=== PATIENT | female | born 1955 | race Two or more races ===

== ENCOUNTER 2018-05-01 18:09 | Inpatient (IN) | payer MEDICARE, OTHER ==
[2018-05-01] MEDS ORDERED: ACETAMINOPHEN IV (For NPO) 1,000 MG in EMPTY BAG 1 BAG IVPB PRN (23:51)
[2018-05-02] MEDS ORDERED: ALPRAZolam 0.25 MG TAB PO PRN (00:08)
--- NOTE | 2018-05-02 00:42 | HP ---
HISTORY AND PHYSICAL DATE OF SERVICE: 05/01/2018. CHIEF COMPLAINT: Abdominal pain. HISTORY OF PRESENT ILLNESS: This 62-year-old woman with a past medical history of multiple medical problems including hypertension, hyperlipidemia, history of anxiety, depression, being followed by primary physician elsewhere, presented to [facility] today with complaints of abdominal pain, nausea, vomiting. The patient was brought in by the daughter. The patient also was unable to retain any fluids. The patient has some cramping pain. There is no history of diarrhea, no history of headache or loss of consciousness. No hematochezia or melena at this time. The CT scan was done in [facility] which showed approximately 10 hyperdense fragmented densities within the stomach and approximately 5 radiation densities , foreign body suspected. The largest was in the stomach, measures 12 x 8 x 9 mm. The density was suspected greater than size, it could be ingested foreign bodies. There is no bowel perforation. There is segmental mucosal thickening of the ascending colon. Patient was transferred to [facility] as direct admission, admitted for evaluation and treatment. PAST MEDICAL HISTORY: Hypertension, hyperlipidemia, history of depression, anxiety. MEDICATIONS: Prior to admission include: 1. Lisinopril 40 mg p.o. daily. 2. Cymbalta 30 mg daily. 3. Lipitor 40 minute 10 mg at bedtime. ALLERGIES: None. FAMILY HISTORY: No history of heart disease or strokes in the family. SOCIAL HISTORY: History of smoking, history of THC. REVIEW OF SYSTEMS: ENT: No diminished vision. CARDIOVASCULAR: No angina. RESPIRATORY: No cough. GI: As mentioned. : No dysuria. NERVOUS SYSTEM: No numbness or weakness. ALLERGY: No asthma. MUSCULOSKELETAL: As mentioned. HEMATOLOGY: No anemia. ENDOCRINE: No history of diabetes or hypothyroidism. CONSTITUTIONAL: As mentioned earlier. PHYSICAL EXAMINATION: Alert, oriented x3, pulse 64, blood pressure 177/76, respirations 17, temperature 98.2, pulse ox 99% on room air. HEENT: Conjunctivae normal. Oral mucosa moist. NECK: No jugular venous distention. No lymph nodes. CARDIOVASCULAR: S1 and S2. LUNGS: Breath sounds diminished at the bases. Few rhonchi. No crackles. ABDOMEN: Soft. Mild diffuse tenderness in the epigastrium. No guarding noted. No rigidity. No mass palpable. LEGS: No edema, no swelling. NERVOUS SYSTEM: Higher functions as mentioned. Moves all limbs with no focal weakness. LYMPHATICS: No lymph nodes palpable. SKIN: No rashes or ulcers. LABS: Reviewed. ASSESSMENT: 1. Abdominal pain with possible foreign body. 2. Possible acute gastritis. 3. Depression, anxiety. 4. Hypertension. 5. Hyperlipidemia. 6. History of nicotine dependence. RECOMMENDATIONS AND DISCUSSION: This 62-year-old woman who presented with multiple complex medical issues. We will monitor the patient closely. Continue the current management. Continue with beta amalia. Proton pump inhibitors. Continue broad-spectrum antibiotics. IV fluids. Otherwise, we will will continue with current medications. Repeat labs. Gastroenterology consultation. Surgical consultation. Guarded prognosis because of multiple complex medical issues. Further recommendations to follow. MMODL / IJN: [id number] / RON
[2018-05-02] MEDS: SODIUM CHLORIDE 0.9% 1,000 ML IV SCH ×2 (01:03→08:27)
[2018-05-02] MEDS: ONDANSETRON 4 MG/2 ML VIAL IVP PRN ×5 (01:03→21:48)
[2018-05-02] MEDS: PIPERACILLIN-TAZOBACTAM 3.375 GM in DEXTROSE/WATER 1 50ML.BAG IVPB SCH ×3 (01:05→15:39)
[2018-05-02] MEDS: PANTOPRAZOLE 40 MG/10 ML VIAL IVP SCH ×3 (01:05→21:57)
[2018-05-02 07:16] LABS: Glucose,Whole Blood 99 mg/dL (75-99)
[2018-05-02] MEDS: NICOTINE 14MG/24HR PATCH TRANSDERM SCH (08:27)
[2018-05-02] MEDS: LISINOPRIL 20 MG TAB PO SCH (08:27)
[2018-05-02] MEDS: DULoxetine HCL 30 MG CAPSULE.DR PO SCH (08:28)
[2018-05-02] MEDS: HEPARIN SODIUM,PORCINE 5,000 UNIT/ML 1 ML VIAL SQ SCH ×2 (08:29→21:56)
--- NOTE | 2018-05-02 08:30 | XR ---
EXAMINATION TYPE: XR abdomen 1V DATE OF EXAM: 05/02/2018 COMPARISON: NONE HISTORY: Possible foreign body TECHNIQUE: One view abdominal series FINDINGS: The osseous structures are intact. The bowel gas pattern is nonspecific. There are radiopaque densit ies overlying the left abdomen and right pelvis. Foreign body not excluded. Degenerative change of the spine. Nonspecific radiopaque densities overlying the left abdomen and right pelvis. Foreign body not entire ly excluded. Correlate clinically.
--- NOTE | 2018-05-02 08:35 | P.CONS ---
History of Present Illness - Reason for Consult Consult date: 05/02/18 Foreign body Requesting physician: Jenifer Lechuga - History of Present Illness 62-year-old female transferred from [facility] with reports of epigastric pain nausea and vomiting that started yesterday. Denies hematemesis hematochezia melena. CT scan A/P in [place] showed several hyperdense fragmented densities within the stomach small intestine. Mucosal thickening of the ascendfing colon. No bowel obstruction or perforation. Patient denies ingesting a foreign body. She thought her symptoms related to food poisoning from eating a hotdog prior to admission. No fever or chills. Pain looking mostly in the midepigastric midabdomen. Abdominal x-ray this morning reported nonspecific radiopaque densities overlying the left abdomen and right pelvis foreign-body cannot be entirely excluded. White count 13.2. Hemoglobin 10.6. platelet 491. LFTs within normal limits. Past Medical History Past Medical History: Hyperlipidemia, Hypertension History of Any Multi-Drug Resistant Organisms: None Reported Past Surgical History: Section Past Anesthesia/Blood Transfusion Reactions: No Reported Reaction Past Psychological History: Anxiety, Depression Smoking Status: Current every day smoker Past Alcohol Use History: None Reported Past Drug Use History: Opiates Medications and Allergies Home Medications Medication Instructions Recorded Confirmed Type Atorvastatin [Lipitor] 10 mg PO HS 05/01/18 05/01/18 History DULoxetine HCL [Cymbalta] 30 mg PO DAILY 05/01/18 05/01/18 History Lisinopril 40 mg PO DAILY 05/01/18 05/01/18 History Allergies Allergy/AdvReac Type Severity Reaction Status Date / Time No Known Allergies Allergy Verified 05/01/18 22:32 Physical Exam Vitals: Vital Signs Temp Pulse Resp BP Pulse Ox 05/02/18 07:00 98.6 F 59 L 16 187/90 98 05/01/18 23:51 98.3 F 64 17 177/76 99 Intake and Output 05/01/18 05/02/18 05/02/18 22:59 06:59 14:59 Other: # Voids 2 Weight 38.4 kg General appearance: The patient is alert, oriented, in no acute distress. HET: Head is normocephalic and atraumatic. Pupils are equal and reactive. Oropharynx is clear without lesions. Neck: Supple without lymphadenopathy. Trachea midline. Heart: S1 S2. Regular rate and rhythm. Lungs: No crackles or wheezes are heard. Abdomen: Soft, mild tenderness to the midabdomen, nondistended with bowel sounds. No peritoneal signs. No palpable organomegaly or masses. Extremities: Normal skin color and turgor. No cyanosis, rash, ulceration, clubbing, or edema. Radial and pedal pulses are 2/4 bilaterally. Neurological: No focal deficits. Strength and sensation are grossly intact. Results CBC & Chem 7: 05/02/18 08:32 05/02/18 08:32 Abdominal x-ray: report reviewed (Dr. Smith) CT scan - abdomen: report reviewed ([place] Dr. Smith) Assessment and Plan (1) Epigastric pain Narrative/Plan: Acute onset of intractable nausea vomiting epigastric abdominal pain possible ingestion of foreign bodies per CT however patient denies ingestion of foreign body. Current Visit: Yes Status: Acute Code(s): R10.13 - EPIGASTRIC PAIN SNOMED Code(s): 46306225 (2) Nausea & vomiting Current Visit: Yes Status: Acute Code(s): R11.2 - NAUSEA WITH VOMITING, UNSPECIFIED SNOMED Code(s): 45493979 (3) Foreign body Current Visit: Yes Status: Acute Code(s): TTZ8718 - SNOMED Code(s): 133522383 Plan: 1. Clear liquids. EGD contingent on clinical course. CBC in a.m. 2. Recommend GS consult. 3. Protonix 40 mg IV BID. 4. Abdominal xrays in a.m. Thank you for this kind referral and the opportunity to participate in the care of your patient. This consultation was discussed with Dr. Smith. The impression and plan of care have been directed as dictated.
--- NOTE | 2018-05-02 08:46 | XR ---
EXAMINATION TYPE: XR chest 2V DATE OF EXAM: 05/02/2018 COMPARISON: NONE TECHNIQUE: PA and lateral views submitted. HISTORY: Possible foreign body FINDINGS: The lungs are clear and there is no pneumothorax, pleural effusion, or focal pneumonia. Postsurgica l change overlying soft tissues neck. Metallic density adjacent to the right neck should be correlate d clinically. Hyperinflation suggests COPD. Calcification overlying shoulder bilaterally. Metallic de nsities in the left upper quadrant. IMPRESSION: 1. Metallic densities in the left upper quadrant correspond to the abdominal KUB abnormality. This co uld be related to bowel content. Foreign body not excluded.
[2018-05-02 09:00] LABS: Basophils % (A) 0 %; Eosinophils % (A) 0 %; HCT 34.7 % (34.0-46.0); HGB 10.6 gm/dL (11.4-16.0); Lymphocytes # (A) 1.1 k/uL (1.0-4.8); Lymphocytes % (A) 8 %; MCH 29.2 pg (25.0-35.0); MCHC 30.5 g/dL (31.0-37.0); Mean Platelet Volume 6.7; Monocytes # (A) 0.4 k/uL (0-1.0); Monocytes % (A) 3 %; Neutrophils # (A) 11.6 k/uL (1.3-7.7); Neutrophils % (A) 88 %; Platelet Count 491 k/uL (150-450); RBC 3.62 m/uL (3.80-5.40); RDW 15.6 % (11.5-15.5); WBC 13.2 k/uL (3.8-10.6)
[2018-05-02 09:20] LABS: Glucose 107 mg/dL (74-99)
[2018-05-02 09:21] LABS: ALT 26 U/L (9-52); AST 15 U/L (14-36); Albumin 3.8 g/dL (3.5-5.0); Alkaline Phosphatase 93 U/L (38-126); Anion Gap 11 mmol/L; Blood Urea Nitrogen 11 mg/dL (7-17); Calcium 9.4 mg/dL (8.4-10.2); Carbon Dioxide 25 mmol/L (22-30); Chloride 102 mmol/L (98-107); Potassium 3.7 mmol/L (3.5-5.1); Sodium 138 mmol/L (137-145); Total Bilirubin 0.5 mg/dL (0.2-1.3); Total Protein 6.3 g/dL (6.3-8.2)
[2018-05-02 10:49] VITALS: BMI 18.9
--- NOTE | 2018-05-02 11:41 | P.GSCN ---
History of Present Illness Consult date: 05/02/18 Reason for Consult: Possible foreign body found on abdominal CAT scan History of present illness: A 62-year-old female presented from [facility] to be evaluated at this facility for a sudden onset nausea vomiting mid epigastric discomfort. Patient states she was seen in [facility] thought she had an x-ray was told they thought she swallowed something and she needed to come to [facility] patient is a poor historian. Patient is adamant that she did not swallow anything. "I think I have food poisoning ate a hot a dog and then the symptoms started. Patient points to the midepigastric abdominal area to the reference point of discomfort. Patient states that she did vomit there was no blood noted in the emesis no frequent stooling no difficulty in urinating abdomen is soft flat nontender no difficulty noted in swallowing CAT scan abdomen pelvis report reviewed from [place] showed no bowel obstruction or perforation several hyperdense fragmented densities within the stomach intestine also thickening of the ascending colon. Abdominal x-ray repeated this morning report indicate nonspecific radiopaque densities over lying the left abdomen and right pelvis foreign body cannot be entirely excluded. Liver enzymes are normal. Hemoglobin 10.6. White count 13.2. Patient denies any prior episode. Review of Systems Essentially unremarkable except as mentioned in the present illness Past Medical History Past Medical History: Hyperlipidemia, Hypertension History of Any Multi-Drug Resistant Organisms: None Reported Past Surgical History: Section Past Anesthesia/Blood Transfusion Reactions: No Reported Reaction Past Psychological History: Anxiety, Depression Smoking Status: Current every day smoker Past Alcohol Use History: None Reported Past Drug Use History: Opiates Medications and Allergies Home Medications Medication Instructions Recorded Confirmed Type Atorvastatin [Lipitor] 10 mg PO HS 05/01/18 05/01/18 History DULoxetine HCL [Cymbalta] 30 mg PO DAILY 05/01/18 05/01/18 History Lisinopril 40 mg PO DAILY 05/01/18 05/01/18 History Allergies Allergy/AdvReac Type Severity Reaction Status Date / Time No Known Allergies Allergy Verified 05/01/18 22:32 Surgical - Exam Vital Signs Temp Pulse Resp BP Pulse Ox 98.3 F 64 17 177/76 99 05/01/18 23:51 05/01/18 23:51 05/01/18 23:51 05/01/18 23:51 05/01/18 23:51 GENERAL APPEARANCE: 62-year-old thin underweight looking older than stated age female patient is alert, oriented, in no acute distress. VITAL SIGNS: Reviewed HEENT: Head is normocephalic and atraumatic. Pupils are equal and reactive. The nares are patent. Oropharynx is clear without lesions. NECK: Supple without lymphadenopathy. Traches midline. HEART: S1, S2. Regular rate and rhythm. Denies chest pain LUNGS: No crackles or wheezes are heard. On room air ABDOMEN: Soft, flat mild tenderness mid abdominal wall, nondistended with good bowel sounds. No peritoneal signs. No palpable organomegaly or masses. Reports a nausea sensation. Did vomit clear secretions no blood noted EXTREMITIES: Normal skin color and turgor. No cyanosis, rash, ulceration, clubbing or edema. Radial pedal pulses are 2/4 bilaterally. NEUROLOGICAL: No focal deficits. Strength and sensation are grossly intact. Results - Labs 05/02/18 08:32 05/02/18 08:32 Abnormal Lab Results - Last 24 Hours (Table) 05/02/18 05/02/18 Range/Units 08:32 08:32 WBC 13.2 H (3.8-10.6) k/uL RBC 3.62 L (3.80-5.40) m/uL Hgb 10.6 L (11.4-16.0) gm/dL MCHC 30.5 L (31.0-37.0) g/dL RDW 15.6 H (11.5-15.5) % Plt Count 491 H (150-450) k/uL Neutrophils # 11.6 H (1.3-7.7) k/uL Glucose 107 H (74-99) mg/dL Diabetes panel 05/02/18 Range/Units 08:32 Sodium 138 (137-145) mmol/L Potassium 3.7 (3.5-5.1) mmol/L Chloride 102 (98-107) mmol/L Carbon Dioxide 25 (22-30) mmol/L BUN 11 (7-17) mg/dL Creatinine 0.80 (0.52-1.04) mg/dL Glucose 107 H (74-99) mg/dL Calcium 9.4 (8.4-10.2) mg/dL AST 15 (14-36) U/L ALT 26 (9-52) U/L Alkaline Phosphatase 93 (38-126) U/L Total Protein 6.3 (6.3-8.2) g/dL Albumin 3.8 (3.5-5.0) g/dL Calcium panel 05/02/18 Range/Units 08:32 Calcium 9.4 (8.4-10.2) mg/dL Albumin 3.8 (3.5-5.0) g/dL Pituitary panel 05/02/18 Range/Units 08:32 Sodium 138 (137-145) mmol/L Potassium 3.7 (3.5-5.1) mmol/L Chloride 102 (98-107) mmol/L Carbon Dioxide 25 (22-30) mmol/L BUN 11 (7-17) mg/dL Creatinine 0.80 (0.52-1.04) mg/dL Glucose 107 H (74-99) mg/dL Calcium 9.4 (8.4-10.2) mg/dL Adrenal panel 05/02/18 Range/Units 08:32 Sodium 138 (137-145) mmol/L Potassium 3.7 (3.5-5.1) mmol/L Chloride 102 (98-107) mmol/L Carbon Dioxide 25 (22-30) mmol/L BUN 11 (7-17) mg/dL Creatinine 0.80 (0.52-1.04) mg/dL Glucose 107 H (74-99) mg/dL Calcium 9.4 (8.4-10.2) mg/dL Total Bilirubin 0.5 (0.2-1.3) mg/dL AST 15 (14-36) U/L ALT 26 (9-52) U/L Alkaline Phosphatase 93 (38-126) U/L Total Protein 6.3 (6.3-8.2) g/dL Albumin 3.8 (3.5-5.0) g/dL Assessment and Plan Assessment: Impression Present on admission mild midepigastric pain with nausea vomiting unclear etiology Present on admission acute onset intractable nausea vomiting epigastric pain possible ingestion of foreign body per CAT scan abdomen pelvis patient denies ingestion of foreign body Chronic nicotine dependency Underweight BMI 19 Present on admission leukocytosis likely reactive Present on admission elevated BNP Plan IV fluid for hydration GIs recommendations noted Continue protonix 40 mg IV twice a day Clear liquid diet as ordered Follow-up on abdominal x-rays in the morning Aspiration precaution Medical service to address medical issues defer to DVT and GI prophylaxis Further surgical recommendations pending clinical course no evidence of an acute surgical abdomen at this time Surgical consultation note dictated for The above impression and plan of care have been discussed and directed by signing physician. Sivan Malcolm nurse practitioner acting as scribe for signing physician.
--- NOTE | 2018-05-02 14:35 | PN ---
PROGRESS NOTE DATE OF SERVICE: 05/02/2018 This is a 62-year-old woman who was admitted with abdominal pain with possible foreign body, is being closely monitored. GI and Surgery are following the patient closely. No chest pain. No palpitations. No fever. The most recent abdominal x-ray done today is reviewed. No chest pain, no palpitation. Minimal abdominal pain is complained of. . PHYSICAL EXAM: Alert and oriented x3. Pulse 59, blood pressure 187/90, respirations 16, temperature 98.2, pulse ox 98% on room air. HEENT: Conjunctivae normal. NECK: No jugular venous distension. CARDIOVASCULAR SYSTEM: S1, S2, muffled. RESPIRATORY: Breath sounds diminished at the bases, a few scattered rhonchi. No crackles. ABDOMEN: Soft, nontender. LEGS: No edema, no swelling. LABS: WBC is 13, hemoglobin is 10.6. ASSESSMENT: 1. Abdominal pain with possible foreign body. 2. Possible acute gastritis. 3. Depression, anxiety. 4. Hypertension. 5. Hyperlipidemia. 6. History of nicotine dependence. RECOMMENDATIONS AND DISCUSSION: Recommend to continue current management and symptomatic treatment. Otherwise, at this time possible endoscopy. Closely follow with Surgery and as well as Gastroenterology. Guarded prognosis because of multiple complex medical issues and further recommendations to follow. MMODL / IJN: [id number] /
[2018-05-02] MEDS: hydrALAZINE HCL 20 MG/ML 1 ML VIAL IVP PRN (15:07)
[2018-05-02] MEDS ORDERED: LIDOCAINE 1% INJ 10MG/ML (20 ML MDV) ONE (18:17)
[2018-05-02] MEDS ORDERED: MIDAZOLAM 2 MG/2 ML VIAL ONE (18:17)
[2018-05-02] MEDS ORDERED: PROPOFOL 10 MG/ML 20 ML VIAL IV ONE (18:17)
[2018-05-02] MEDS ORDERED: IV FLUID CONTINUATION 150 ML IV ONE (18:18)
--- NOTE | 2018-05-02 18:30 | P.PCN ---
Date of Procedure: 05/02/18 Procedure(s) Performed: BRIEF HISTORY: Patient is a 62-year-old, pleasant, white female, admitted to the hospital with abdominal pain, nausea and vomiting. She had abdominal x- rays done which showed possible foreign body in the stomach and the small bowel. She is hence scheduled for an upper endoscopy to evaluate this further.. PROCEDURE PERFORMED: Esophagogastroduodenoscopy. PREOPERATIVE DIAGNOSIS: Epigastric pain/nausea/vomiting of 2 days duration. IV sedation per anesthesia. PROCEDURE: After informed consent was obtained, the patient was brought into the endoscopy unit. IV sedation was administered by Anesthesia under continuous monitoring. Initially the Olympus GIF-140 video endoscope was inserted into the mouth. Esophagus intubated without any difficulty. It was gradually advanced into the stomach and duodenum and carefully examined. The bulb and the second part of the duodenum appeared normal. The scope at this time was withdrawn to the stomach, adequately insufflated with air, and upon careful examination, mucosa of the antrum, had mild gastritis. The body, cardia and the fundus appeared normal. There was no evidence of foreign body in the stomach. The scope was then withdrawn into the esophagus. The GE junction was located at 39 cm from the incisors. There were linear erosions in the distal esophagus consistent with LA grade B reflux esophagitis. Rest of the esophagus appeared normal and the patient tolerated the procedure well. IMPRESSION: 1. Mild gastritis. 2. LA grade B reflux esophagitis. 3. No foreign body noted in the stomach RECOMMENDATIONS: The findings of this examination were discussed with the patient . Her diet will be advanced as tolerated...
[2018-05-02] MEDS: ATORVASTATIN 10 MG TAB PO SCH (21:56)
[2018-05-02] MEDS: MELATONIN 3 MG TABLET PO SCH (21:56)
[2018-05-03] MEDS: SODIUM CHLORIDE 0.9% 1,000 ML IV SCH ×3 (00:24→23:19)
[2018-05-03] MEDS: PIPERACILLIN-TAZOBACTAM 3.375 GM in DEXTROSE/WATER 1 50ML.BAG IVPB SCH ×4 (00:38→23:15)
[2018-05-03] MEDS: hydrALAZINE HCL 20 MG/ML 1 ML VIAL IVP PRN ×2 (00:39→08:05)
[2018-05-03] MEDS: ONDANSETRON 4 MG/2 ML VIAL IVP PRN (04:51)
[2018-05-03] MEDS ORDERED: ACETAMINOPHEN TAB 325 MG TAB PO PRN (07:26)
[2018-05-03] MEDS: LISINOPRIL 20 MG TAB PO SCH (08:05)
[2018-05-03] MEDS: HEPARIN SODIUM,PORCINE 5,000 UNIT/ML 1 ML VIAL SQ SCH ×2 (08:05→20:35)
[2018-05-03] MEDS: PANTOPRAZOLE 40 MG/10 ML VIAL IVP SCH ×2 (08:05→20:33)
--- NOTE | 2018-05-03 08:05 | XR ---
EXAMINATION TYPE: XR abdomen complete w decub DATE OF EXAM: 05/03/2018 COMPARISON: 05/02/2018 HISTORY: Possible foreign body TECHNIQUE: Supine, upright, and left side down lateral decubitus views of the abdomen are obtained. FINDINGS: Bowel gas pattern nonspecific. Radiopaque densities are seen scattered throughout the colon . This may represent bowel content. Foreign body not excluded. No diagnostic evidence of obstruction. Calcifications in the pelvis appear to be vascular. Hypertrophic and degenerative changes spine. Bone island overlying the right iliac bone. IMPRESSION: Nonspecific abdomen. Radiopaque density overlying the right lower quadrant is nonspecific could repre sent bowel content. Foreign body not excluded.
[2018-05-03] MEDS: NICOTINE 14MG/24HR PATCH TRANSDERM SCH (08:06)
[2018-05-03] MEDS: DULoxetine HCL 30 MG CAPSULE.DR PO SCH (08:06)
[2018-05-03 08:25] LABS: Anisocytosis Slight; Basophils % (A) 0 %; Eosinophils % (A) 0 %; HCT 38.6 % (34.0-46.0); HGB 12.4 gm/dL (11.4-16.0); Lymphocytes # (A) 0.9 k/uL (1.0-4.8); Lymphocytes % (A) 6 %; MCHC 32.1 g/dL (31.0-37.0); MCV 96.7 fL (80.0-100.0); Mean Platelet Volume 6.9; Monocytes # (A) 0.5 k/uL (0-1.0); Monocytes % (A) 3 %; Neutrophils # (A) 14.2 k/uL (1.3-7.7); Neutrophils % (A) 90 %; Platelet Count 474 k/uL (150-450); RBC 3.99 m/uL (3.80-5.40); RDW 16.1 % (11.5-15.5); WBC 15.7 k/uL (3.8-10.6)
--- NOTE | 2018-05-03 10:54 | P.PN ---
Subjective Progress Note Date: 05/03/18 Principal diagnosis: Nausea vomiting abdominal pain Status post EGD last night no evidence of foreign body. Still reports nausea vomiting abdominal discomfort. Afebrile. White count 15.7. Hemoglobin 12.4. Abdominal x-ray this morning nonspecific radiopaque density overlying the right lower quadrant nonspecific could represent bowel content foreign-body not excluded. General surgery following. HIDA scan ordered. Objective - Vital Signs Vital signs: Vital Signs Temp 98.7 F 05/02/18 22:46 Pulse 60 05/02/18 22:46 Resp 17 05/02/18 22:46 BP 111/60 05/03/18 02:08 Pulse Ox 96 05/02/18 22:46 Intake & Output 05/02/18 05/03/18 05/03/18 18:59 06:59 18:59 Intake Total 100 Balance 100 Weight 38.4 kg Intake: IV 100 Other: # Voids 2 2 - Exam General appearance: The patient is alert, oriented, in no acute distress. HET: Head is normocephalic and atraumatic. Pupils are equal and reactive. Oropharynx is clear without lesions. Neck: Supple without lymphadenopathy. Trachea midline. Heart: S1 S2. Regular rate and rhythm. Lungs: No crackles or wheezes are heard. Abdomen: Soft, mild midabdominal tenderness, nondistended with bowel sounds. No peritoneal signs. No palpable organomegaly or masses. Extremities: Normal skin color and turgor. No cyanosis, rash, ulceration, clubbing, or edema. Radial and pedal pulses are 2/4 bilaterally. Neurological: No focal deficits. Strength and sensation are grossly intact. - Labs CBC & Chem 7: 05/03/18 07:47 05/02/18 08:32 Labs: Abnormal Lab Results - Last 24 Hours (Table) 05/03/18 Range/Units 07:47 WBC 15.7 H (3.8-10.6) k/uL RDW 16.1 H (11.5-15.5) % Plt Count 474 H (150-450) k/uL Neutrophils # 14.2 H (1.3-7.7) k/uL Lymphocytes # 0.9 L (1.0-4.8) k/uL Assessment and Plan (1) Epigastric pain Narrative/Plan: Acute onset of intractable nausea vomiting epigastric abdominal pain possible ingestion of foreign bodies per CT however patient denies ingestion of foreign body. Current Visit: Yes Status: Acute Code(s): R10.13 - EPIGASTRIC PAIN SNOMED Code(s): 36203138 (2) Nausea & vomiting Narrative/Plan: Status post EGD no evidence of gastric outlet obstruction or foreign body Current Visit: Yes Status: Acute Code(s): R11.2 - NAUSEA WITH VOMITING, UNSPECIFIED SNOMED Code(s): 58607163 (3) Foreign body Current Visit: Yes Status: Acute Code(s): AAY7657 - SNOMED Code(s): 306805115 Plan: 1. General surgery has ordered HIDA scan. Nothing by mouth except medications. Continue with antinausea medications. Assessment and plan a care discussed with Dr. Smith
[2018-05-03] MEDS ORDERED: SCOPOLAMINE 1.5MG/72HR PATCH TRANSDERM SCH (11:00)
--- NOTE | 2018-05-03 13:03 | NM ---
Nuclear medicine hepatobiliary scan. HISTORY: Pain. DOSAGE: The patient seated 8 ounces of ensure and 5 mCi of Technetium 99m Choletec. FINDINGS: There is normal hepatic extraction. The gallbladder is seen by 25 minutes. There is bilia ry to bowel clearance by 25 minutes. Ejection fraction is 21%. IMPRESSION: 1. Abnormal ejection fraction of 21%. Correlate for biliary dyskinesia.
[2018-05-03] MEDS: METOCLOPRAMIDE 5 MG/ML 2 ML VIAL IVP SCH ×3 (13:27→23:15)
--- NOTE | 2018-05-03 18:56 | P.PN ---
Subjective Progress Note Date: 05/03/18 Progress NOte being dictated for Dr. Beavers. Interval History: This is a 62-year-old female admitted with abdominal pain, possible foreign body. Evaluated by both GI and surgery. Status post EGD reporting no foreign body. Abdominal x-ray this morning reporting nonspecific density overlying right lower quadrant, foreign body not excluded. Complains of nausea, no emesis, dry heaving. Minimal abdominal pain/discomfort. HIDA scan ordered. Afebrile, WBC 15.7, HGB 12.4.Denies chest pain, palpitation. Objective - Vital Signs Vital signs: Vital Signs Temp 98.7 F 05/02/18 22:46 Pulse 60 05/02/18 22:46 Resp 17 05/02/18 22:46 BP 111/60 05/03/18 02:08 Pulse Ox 96 05/02/18 22:46 Intake & Output 05/02/18 05/03/18 05/03/18 18:59 06:59 18:59 Intake Total 100 Balance 100 Weight 38.4 kg Intake: IV 100 Other: # Voids 2 2 - Exam PHYSICAL EXAM: VITAL SIGNS: As above GENERAL: Sitting up in bed, no acute HEENT: Conjunctivae normal. eyes normal. Oral mucosa somewhat NECK: No JVD. No thyroid enlargement. No LNs CARDIOVASCULAR: S1, S2 muffled. No murmur RESPIRATION: Breath sounds diminished in the bases. Occasional scattered rhonchi, no crackles. ABDOMEN: Soft, nondistended, minimal mid abdominal tenderness . No guarding. no masses palpable. Bowel sounds heard. LEGS: No edema. no swelling PSYCHIATRY: Alert and oriented -3, mood and affect normal. NERVOUS SYSTEM: Cranial N 2-12 grossly normal. Moves all 4 limbs. Diffuse weakness No focal deficits. Skin: no ulcer no rash Joints: No active swelling. No inflammation. Lymphatic system. No LN neck axilla or groin. - Labs CBC & Chem 7: 05/03/18 07:47 05/02/18 08:32 Labs: Abnormal Lab Results - Last 24 Hours (Table) 05/03/18 Range/Units 07:47 WBC 15.7 H (3.8-10.6) k/uL RDW 16.1 H (11.5-15.5) % Plt Count 474 H (150-450) k/uL Neutrophils # 14.2 H (1.3-7.7) k/uL Lymphocytes # 0.9 L (1.0-4.8) k/uL Assessment and Plan Assessment: 1. Abdominal pain with possible foreign body. Status post EGD reporting no gastric outlet obstruction, negative for foreign body. HIDA scan pending. 2. Possible acute gastritis 3. Depression, anxiety 4. Hypertension, hyperlipidemia Plan: Continue on current medication regime ,monitoring and symptomatic treatment. Reglan added to med regime. NPO. HIDA scan ordered per surgery, pending. The impression and plan of care has been dictated as directed. : I performed a history and examination of this patient, discussed the same with the dictator. I agree with the dictator's note ,documented as a scribe. Any additional findings or plans will be noted.
--- NOTE | 2018-05-03 18:56 | P.PN ---
Progress Note - Text Progress Note Date: 05/03/18 The patient still has complaints of nausea and some epigastric pain. A HIDA scan was performed which showed diminished ejection fraction consistent with biliary dyskinesia and chronic cholecystitis. On exam her lesser stable. I'm soft. Patient will undergo laparoscopic ostectomy in the a.m.
[2018-05-03] MEDS: MELATONIN 3 MG TABLET PO SCH (20:32)
[2018-05-03] MEDS: ATORVASTATIN 10 MG TAB PO SCH (20:33)
[2018-05-04] MEDS: METOCLOPRAMIDE 5 MG/ML 2 ML VIAL IVP SCH ×3 (06:35→17:26)
[2018-05-04] MEDS: PANTOPRAZOLE 40 MG/10 ML VIAL IVP SCH ×2 (08:18→22:51)
[2018-05-04] MEDS: HEPARIN SODIUM,PORCINE 5,000 UNIT/ML 1 ML VIAL SQ SCH ×2 (08:18→22:45)
[2018-05-04] MEDS: PIPERACILLIN-TAZOBACTAM 3.375 GM in DEXTROSE/WATER 1 50ML.BAG IVPB SCH ×2 (08:19→15:07)
[2018-05-04] MEDS: NICOTINE 14MG/24HR PATCH TRANSDERM SCH (08:19)
[2018-05-04] MEDS ORDERED: LACTATED RINGERS 1,000 ML IV ONE (08:35)
[2018-05-04] MEDS ORDERED: MIDAZOLAM 2 MG/2 ML VIAL IVP ONE (09:14)
--- NOTE | 2018-05-04 09:17 | P.PN ---
Progress Note - Text Progress Note Date: 05/04/18 Patient still has complaints of epigastric pain nausea. She will undergo laparoscopic cholecystectomy today for chronic cholecystitis.
[2018-05-04] MEDS ORDERED: LIDOCAINE 1%-EPI 1:100,000 30 ML VIAL SQ ONE (09:31)
[2018-05-04] MEDS ORDERED: ROCURONIUM BROMIDE 10 MG/ML 10 ML VIAL IV ONE (09:39)
[2018-05-04] MEDS ORDERED: hydrALAZINE HCL 20 MG/ML 1 ML VIAL ONE (09:39)
[2018-05-04] MEDS ORDERED: PROPOFOL 10 MG/ML 20 ML VIAL IV ONE (09:39)
[2018-05-04] MEDS ORDERED: GLYCOPYRROLATE 0.2 MG/ML 2 ML VIAL ONE (09:39)
[2018-05-04] MEDS ORDERED: LIDOCAINE 1% INJ 10MG/ML (20 ML MDV) ONE (09:39)
[2018-05-04] MEDS ORDERED: NEOSTIGMINE 1 MG/ML 10 ML VIAL ONE (09:39)
[2018-05-04] MEDS ORDERED: fentaNYL (PF) 50 MCG/ML 2 ML AMP ONE (09:39)
--- NOTE | 2018-05-04 10:33 | P.OP ---
Date of Procedure: 05/04/18 Preoperative Diagnosis: Cholecystitis Postoperative Diagnosis: Cholecystitis Procedure(s) Performed: Laparoscopic cholecystectomy Anesthesia: BRIDGET Surgeon: Jose Espino Estimated Blood Loss (ml): 5 Pathology: other (Gallbladder) Condition: stable Disposition: PACU Description of Procedure: The patient was placed on the operating table. The patient received a general endotracheal tube anesthesia. The patients abdomen was prepped and draped in the usual sterile fashion. Through an infraumbilical stab incision, the fascia of the anterior abdominal wall was grasped with a pair of Kochers and then the Veress needle was placed in the peritoneal cavity. Position of the Veress needle was confirmed with positive drop test. The abdomen was then insufflated. After adequate insufflation, the 10 mm trocar was placed in the peritoneal cavity. Following this the laparoscope was placed in the peritoneal cavity. The patient was placed in the head-up, right side up position and then a 5 mm trocar was placed in the right lateral and right subcostal position under direct visualization. A 8 mm trocar was placed in the epigastric position. The gallbladder was grasped in the fundus and infundibulum. Traction on the gallbladder was placed in the lateral and the cephalad positions. The triangle of Calot was visualized.. The cystic duct was bluntly dissected until the union of the cystic duct and common bile duct was seen. The cystic duct was then divided and sealed with the Harmonic scissors. A PDS Endoloop was then placed throughout the cystic duct stump. The cystic artery divided and sealed with the Harmonic scissors. The gallbladder was then removed from the liver bed using Harmonic scissors. The gallbladder was then extracted through the epigastric port site. Operative field was checked for any bleeding spots and Harmonic scissors was used to coagulate the liver bed. The abdomen was irrigated. The trocars were removed. The skin was closed using interrupted 3-0 Vicryl suture. Dermabond dressing were applied. The patient tolerated the procedure well.
[2018-05-04] MEDS ORDERED: ONDANSETRON 4 MG/2 ML VIAL IVP ONE (10:39)
[2018-05-04] MEDS: HYDROmorphone 1 MG/ML 1 ML SYRINGE IVP ONE ×4 (10:50→11:27)
[2018-05-04] MEDS: MIDAZOLAM 2 MG/2 ML VIAL IVP ONE ×2 (11:35→11:47)
[2018-05-04] MEDS ORDERED: HYDROmorphone 0.5 MG/0.5 ML SYRINGE IVP PRN (12:21)
[2018-05-04] MEDS: LISINOPRIL 20 MG TAB PO SCH (12:42)
[2018-05-04] MEDS: DULoxetine HCL 30 MG CAPSULE.DR PO SCH (12:42)
[2018-05-04] MEDS: LACTATED RINGERS 1,000 ML IV SCH (12:49)
[2018-05-04 13:53] LABS: Appearance,Urine Clear (Clear); Bacteria,Urine Rare /hpf; Bilirubin,Urine Negative (Negative); Blood,Urine Trace (Negative); Color,Urine Light Yellow; Glucose,Urine (UA) Negative (Negative); Ketones,Urine Negative (Negative); Leukocyte Esterase,Urine Small (Negative); Mucus,Urine Rare /hpf; Nitrite,Urine Negative (Negative); Protein,Urine Negative (Negative); Specific Gravity,Urine 1.007 (1.001-1.035); Squamous Epithelial Cell,Urine <1 /hpf (0-4); Urobilinogen,Urine <2.0 mg/dL (<2.0); WBC,Urine 3 /hpf (0-5)
[2018-05-04] MEDS: HYDROcodone/APAP 7.5-325MG 1 EACH TAB PO PRN ×2 (15:07→20:32)
--- NOTE | 2018-05-04 17:39 | P.PN ---
Subjective Progress Note Date: 05/04/18 Progress NOte being dictated for Dr. Beavers. Interval History: This is a 62-year-old female admitted with abdominal pain, possible foreign body. Evaluated by both GI and surgery. Status post EGD reporting no foreign body. Abdominal x-ray this morning reporting nonspecific density overlying right lower quadrant, foreign body not excluded. Complains of nausea, no emesis, dry heaving. Minimal abdominal pain/discomfort. HIDA scan ordered. Afebrile, WBC 15.7, HGB 12.4.Denies chest pain, palpitation. 05/04/2018 HIDA scan reporting EF 21%, possible biliary dyskinesia, underwent laparoscopic cholecystectomy today. Tolerated procedure well. Denies chest pain, palpitations or shortness of breath. Minimal abdominal discomfort. No nausea or vomiting. Objective - Vital Signs Vital signs: Vital Signs Temp 98.4 F 05/04/18 12:35 Pulse 66 05/04/18 13:49 Resp 16 05/04/18 12:35 BP 179/88 05/04/18 14:34 Pulse Ox 96 05/04/18 12:35 Intake & Output 05/03/18 05/04/18 05/04/18 18:59 06:59 18:59 Intake Total 209 297 3048 Output Total 430 Balance 650 440 570 Intake: IV 650 1000 Piperacillin-Tazobactam 3 50 .375 gm In Dextrose/Water 1 50ml.bag @ 12.5 mls/hr IVPB Q8HR PAMELA Rx#: [id number] Sodium Chloride 0.9% 1, 600 000 ml @ 75 mls/hr IV . [id number] PAMELA Rx#:[id number] Oral 440 Output: Urine 425 Estimated Blood Loss 5 Other: # Voids 2 2 # Bowel Movements 0 1 - Exam PHYSICAL EXAM: VITAL SIGNS: As above GENERAL: Sitting up in bed, no acute HEENT: Conjunctivae normal. eyes normal. Oral mucosa moist. NECK: No JVD. No thyroid enlargement. No LNs CARDIOVASCULAR: S1, S2 muffled. No murmur RESPIRATION: Breath sounds diminished in the bases. Occasional scattered rhonchi, no crackles. ABDOMEN: Soft, status post surgery .No guarding Bowel sounds heard. LEGS: No edema. no swelling PSYCHIATRY: Alert and oriented -3, mood and affect normal. NERVOUS SYSTEM: Cranial N 2-12 grossly normal. Moves all 4 limbs. Diffuse weakness No focal deficits. Skin: no ulcer no rash Joints: No active swelling. No inflammation. Lymphatic system. No LN neck axilla or groin. - Labs CBC & Chem 7: 05/03/18 07:47 05/02/18 08:32 Labs: Abnormal Lab Results - Last 24 Hours (Table) 05/04/18 Range/Units 11:25 Urine Blood Trace H (Negative) Ur Leukocyte Esterase Small H (Negative) Urine Bacteria Rare H (None) /hpf Urine Mucus Rare H (None) /hpf Assessment and Plan Assessment: 1. Abdominal pain with possible foreign body. Status post EGD reporting no gastric outlet obstruction, negative for foreign body. HIDA scan reporting possible biliary dyskinesia. Status post laparoscopic cholecystectomy. 2. Possible acute gastritis 3. Depression, anxiety 4. Hypertension, hyperlipidemia Plan: Continue on current medication regime ,monitoring and symptomatic treatment. Aggressive pulmonary toileting. Incentive spirometer reinforced. Increased attenuation as tolerated. Discharge planning in progress for tomorrow.. The impression and plan of care has been dictated as directed. : I performed a history and examination of this patient, discussed the same with the dictator. I agree with the dictator's note ,documented as a scribe. Any additional findings or plans will be noted.
[2018-05-04] MEDS: MELATONIN 3 MG TABLET PO SCH (22:45)
[2018-05-04] MEDS: ATORVASTATIN 10 MG TAB PO SCH (22:45)
[2018-05-04] MEDS: HYDROmorphone 1 MG/ML 1 ML SYRINGE IVP PRN (22:47)
[2018-05-05] MEDS: PIPERACILLIN-TAZOBACTAM 3.375 GM in DEXTROSE/WATER 1 50ML.BAG IVPB SCH ×2 (00:14→08:01)
[2018-05-05] MEDS: METOCLOPRAMIDE 5 MG/ML 2 ML VIAL IVP SCH ×3 (00:24→12:32)
[2018-05-05] MEDS: hydrALAZINE HCL 20 MG/ML 1 ML VIAL IVP PRN (00:25)
[2018-05-05 00:39] VITALS: RESP 20
[2018-05-05] MEDS: HYDROmorphone 1 MG/ML 1 ML SYRINGE IVP PRN (02:25)
[2018-05-05] MEDS: HYDROcodone/APAP 7.5-325MG 1 EACH TAB PO PRN ×2 (04:55→11:29)
[2018-05-05 06:30] VITALS: BP 125/74; PULSE 72; TEMP 98.4
[2018-05-05] MEDS: HEPARIN SODIUM,PORCINE 5,000 UNIT/ML 1 ML VIAL SQ SCH (08:02)
[2018-05-05] MEDS: LISINOPRIL 20 MG TAB PO SCH (08:02)
[2018-05-05] MEDS: DULoxetine HCL 30 MG CAPSULE.DR PO SCH (08:02)
[2018-05-05] MEDS: PANTOPRAZOLE 40 MG/10 ML VIAL IVP SCH (08:02)
[2018-05-05] MEDS: NICOTINE 14MG/24HR PATCH TRANSDERM SCH (08:03)
[2018-05-05 08:25] LABS: Basophils % (A) 0 %; Eosinophils # (A) 0.1 k/uL (0-0.7); Eosinophils % (A) 1 %; HCT 37.3 % (34.0-46.0); HGB 11.8 gm/dL (11.4-16.0); Lymphocytes # (A) 1.7 k/uL (1.0-4.8); Lymphocytes % (A) 15 %; MCH 30.3 pg (25.0-35.0); MCHC 31.5 g/dL (31.0-37.0); MCV 96.3 fL (80.0-100.0); Mean Platelet Volume 7.2; Monocytes # (A) 0.8 k/uL (0-1.0); Monocytes % (A) 6 %; Neutrophils # (A) 9.1 k/uL (1.3-7.7); Neutrophils % (A) 76 %; Platelet Count 399 k/uL (150-450); RBC 3.88 m/uL (3.80-5.40); RDW 15.5 % (11.5-15.5)
[2018-05-05 08:58] LABS: Anion Gap 13 mmol/L; Blood Urea Nitrogen 9 mg/dL (7-17); Calcium 9.1 mg/dL (8.4-10.2); Carbon Dioxide 23 mmol/L (22-30); Chloride 99 mmol/L (98-107); Glucose 84 mg/dL (74-99); Potassium 3.2 mmol/L (3.5-5.1); Sodium 135 mmol/L (137-145)
[2018-05-05] MEDS: LACTATED RINGERS 1,000 ML IV SCH (12:31)
--- NOTE | 2018-05-05 14:25 | P.PN ---
Subjective Progress Note Date: 05/05/18 Principal diagnosis: Cholecystitis Patient doing well today. Denies pain. White blood cell count 12. Tolerating diet. Objective - Vital Signs Vital signs: Vital Signs Temp 98.4 F 05/05/18 06:29 Pulse 72 05/05/18 08:00 Resp 20 05/05/18 08:00 BP 125/74 05/05/18 06:29 Pulse Ox 97 05/05/18 06:29 Intake & Output 05/04/18 05/05/18 05/05/18 18:59 06:59 18:59 Intake Total 1000 300 480 Output Total 430 Balance 570 300 480 Weight 38.4 kg Intake: IV 1000 Oral 300 480 Output: Urine 425 Estimated Blood Loss 5 Other: # Voids 2 1 # Bowel Movements 1 0 - Exam Abdomen: Soft, nondistended, mild tenderness, incisions clean and dry - Labs CBC & Chem 7: 05/05/18 07:28 05/05/18 07:28 Labs: Abnormal Lab Results - Last 24 Hours (Table) 05/05/18 05/05/18 Range/Units 07:28 07:28 WBC 12.0 H (3.8-10.6) k/uL Neutrophils # 9.1 H (1.3-7.7) k/uL Sodium 135 L (137-145) mmol/L Potassium 3.2 L (3.5-5.1) mmol/L Assessment and Plan (1) Nausea & vomiting Narrative/Plan: Continued low-fat diet. January discharge. Follow-up with Dr. Espino. Current Visit: Yes Status: Acute Code(s): R11.2 - NAUSEA WITH VOMITING, UNSPECIFIED SNOMED Code(s): 49567367
--- NOTE | 2018-05-05 14:35 | P.DS ---
Providers Date of admission: 05/01/18 20:40 Attending physician: Jenifer Lechuga Consults: 05/02/18 06:00 Consult Physician Urgent Consulting Provider: Jose Espino Consult Reason/Comments: foreign body found abdominal CT Do you want consulting provider notified?: Yes, Notify in am Placement Type Exists?: Yes Primary care physician: Stated None Hospital Course: 62-year-old female admitted with abdominal pain, possible foreign body. Evaluated by both GI and surgery. Status post EGD reporting no foreign body. Abdominal x-ray this morning reporting nonspecific density overlying right lower quadrant, foreign body not excluded. Complains of nausea, no emesis, dry heaving. Minimal abdominal pain/discomfort. HIDA scan ordered. Afebrile, WBC 15.7, HGB 12.4.Denies chest pain, palpitation. 05/04/2018 HIDA scan reporting EF 21%, possible biliary dyskinesia, underwent laparoscopic cholecystectomy today. Tolerated procedure well. Denies chest pain, palpitations or shortness of breath. Minimal abdominal discomfort. No nausea or vomiting. 05/05/2018 Patient is feeling much better today will be discharged today patient need to use low-fat diet patient will be prescribed Prilosec. PHYSICAL EXAMINATION: GENERAL: The patient is alert and oriented x3, not in any acute distress. Well developed, well nourished. HEENT: Pupils are round and equally reacting to light. EOMI. No scleral icterus. No conjunctival pallor. Normocephalic, atraumatic. No pharyngeal erythema. No thyromegaly. CARDIOVASCULAR: S1 and S2 present. No murmurs, rubs, or gallops. PULMONARY: Chest is clear to auscultation, no wheezing or crackles. ABDOMEN: Soft, nontender, nondistended, normoactive bowel sounds. No palpable organomegaly. MUSCULOSKELETAL: No joint swelling or deformity. EXTREMITIES: No cyanosis, clubbing, or pedal edema. NEUROLOGICAL: Gross neurological examination did not reveal any focal deficits. SKIN: No rashes. Assessment and Plan Assessment: 1. Abdominal pain probably due to gallbladder disease or cholecystitis, improved patient is status post laparoscopy cholecystectomy 2. Possible acute gastritis 3. Depression, anxiety 4. Hypertension, hyperlipidemia Plan - Discharge Summary Discharge Rx Participant: No New Discharge Prescriptions: New Docusate [Colace] 100 mg PO BID #20 capsule HYDROcodone/APAP 7.5-325MG [[place] 7.5-325] 1 tab PO Q4H PRN 3 Days #18 tab PRN Reason: Pain Omeprazole [PriLOSEC] 40 mg PO AC-BRKFST #14 capsule. No Action Lisinopril 40 mg PO DAILY DULoxetine HCL [Cymbalta] 30 mg PO DAILY Atorvastatin [Lipitor] 10 mg PO HS Discharge Medication List Atorvastatin [Lipitor] 10 mg PO HS 05/01/18 [History] DULoxetine HCL [Cymbalta] 30 mg PO DAILY 05/01/18 [History] Lisinopril 40 mg PO DAILY 05/01/18 [History] Docusate [Colace] 100 mg PO BID #20 capsule 05/04/18 [Rx] HYDROcodone/APAP 7.5-325MG [[place] 7.5-325] 1 tab PO Q4H PRN 3 Days #18 tab 05/04 [Rx] Omeprazole [PriLOSEC] 40 mg PO AC-BRKFST #14 capsule. 05/05/18 [Rx] Follow up Appointment(s)/Referral(s): Jose Espino MD [STAFF PHYSICIAN] - 05/15/18 9:30 am Patient Instructions/Handouts: *Surgery [facility] - ([facility]) Laparoscopic Cholecystectomy, How to Stop Smoking (DC), Cigarette Smoking and Your Health ( GEN) Activity/Diet/Wound Care/Special Instructions: activity limited until follow-up. keep incision clean/dry notify provider if increase in pain, edema, redness, drainage, fever. Discharge Disposition: HOME SELF-CARE
== END 2018-05-05 15:15 | disposition home or self-care (01) | DRG 418 ==
LOC: 4MS4W 20:40
PROVIDERS: ADMIT Hospitalist; ATTEND Hospitalist
PROC: 0DJ08ZZ Inspection of Upper Intestinal Tract, Via Natural or Artificial Opening Endoscopic (ICD-10-PCS; 2018-05-02)
PROC: 0FT44ZZ Resection of Gallbladder, Percutaneous Endoscopic Approach (ICD-10-PCS; principal; 2018-05-04 09:45)
DX: K81.1 Chronic cholecystitis (principal); Z68.1 Body mass index [BMI] 19.9 or less, adult; R63.6 Underweight; K82.8 Other specified diseases of gallbladder; K29.70 Gastritis, unspecified, without bleeding; K21.0 Gastro-esophageal reflux disease with esophagitis; E78.5 Hyperlipidemia, unspecified; F32.9 Major depressive disorder, single episode, unspecified; F41.9 Anxiety disorder, unspecified; I10 Essential (primary) hypertension; F17.210 Nicotine dependence, cigarettes, uncomplicated; Z71.6 Tobacco abuse counseling; Z79.899 Other long term (current) drug therapy
CPT/HCPCS: 43235; 71046; 74018; 74021; 78227; 80048; 80053; 81001; 83880; 85025; 88304

== ENCOUNTER 2025-03-19 17:13 | Emergency (ER) | payer MEDICARE, OTHER ==
--- NOTE | 2025-03-19 18:26 | ED ---
General Adult HPI - General Source: patient, family Mode of arrival: ambulatory Limitations: no limitations <Carlos Cason - Last Filed: 03/19/25 20:28> <Harsh Castañeda - Last Filed: 03/19/25 22:39> - General Chief complaint: Psychiatric Symptoms Stated complaint: Mental health eval Time Seen by Provider: 03/19/25 17:39 - History of Present Illness Initial comments: Dictation was produced using [employer] dictation software. please excuse any grammatical, word or spelling errors. Chief Complaint: 69-year-old female presents to the emergency department for inpatient psychiatric admission History of Present Illness: Patient 69-year-old female she was at [facility] in [place]. She apparently has been feeling suicidal wants to end her life. Does not have a specific plan. She is accompanied by daughter. Patient denies any physical complaints. Denies any visual auditory hallucinations. The ROS documented in this emergency department record has been reviewed and confirmed by me. Those systems with pertinent positive or negative responses have been documented in the HPI. All other systems are other negative and/or noncontributory. (Carlos Cason) - Related Data Home Medications Medication Instructions Recorded Confirmed Atorvastatin [Lipitor] 10 mg PO HS 05/01/18 05/01/18 DULoxetine HCL [Cymbalta] 30 mg PO DAILY 05/01/18 05/01/18 lisinopriL 40 mg PO DAILY 05/01/18 05/01/18 Previous Rx's Medication Instructions Recorded Docusate [Colace] 100 mg PO BID #20 capsule 05/04/18 HYDROcodone/APAP 7.5-325MG [[place] 1 tab PO Q4H PRN 3 Days #18 tab 05/04/18 7.5-325] Omeprazole [PriLOSEC] 40 mg PO LIZANDRO-RY #14 capsule. 05/05/18 Allergies Allergy/AdvReac Type Severity Reaction Status Date / Time No Known Allergies Allergy Verified 05/01/18 22:32 Review of Systems ROS Other: All systems not noted in ROS Statement are negative. <Carlos Cason - Last Filed: 03/19/25 20:28> ROS Other: All systems not noted in ROS Statement are negative. <Harsh Castañeda - Last Filed: 03/19/25 22:39> ROS Statement: Those systems with pertinent positive or pertinent negative responses have been documented in the HPI. Past Medical History Past Medical History: Hyperlipidemia, Hypertension History of Any Multi-Drug Resistant Organisms: None Reported Past Surgical History: Section Past Anesthesia/Blood Transfusion Reactions: No Reported Reaction Past Psychological History: Anxiety, Depression Past Alcohol Use History: None Reported Past Drug Use History: Opiates <Carlos Cason - Last Filed: 03/19/25 20:28> General Exam Limitations: no limitations <Carlos Cason - Last Filed: 03/19/25 20:28> - General Exam Comments Initial Comments: General: Well-appearing, nontoxic, no acute distress. Head: Normocephalic, atraumatic Eyes: PERRLA, EOMI ENT: Airway patent Chest: Nonlabored breathing Skin: No visual rash, normal skin tone Neuro: Alert and oriented 3 Musculoskeletal: No gross abnormalities (Carlos Cason) Course Vital Signs 03/19/25 17:35 Temperature 98.2 F Pulse Rate 101 H Respiratory 20 Rate Blood Pressure 160/94 O2 Sat by Pulse 97 Oximetry Medical Decision Making <Carlos Cason - Last Filed: 03/19/25 20:28> - Medical Decision Making M was pt. sent in by a medical professional or institution ([facility], [employer], urgent care, hospital, or [facility]...) When possible be specific @ -No Did you speak to anyone other than the patient for history (EMS, parent, family, police, friend...)? What history was obtained from this source @ -Daughter as described above Did you review nursing and triage notes (agree or disagree)? Why? @ -I reviewed and agree with nursing and triage notes Were old charts reviewed (outside hosp., previous admission, EMS record, old EKG, old radiological studies, urgent care reports/EKG's, [facility] records)? Report findings @ -No old charts were reviewed Differential Diagnosis (chest pain, altered mental status, abdominal pain women, abdominal pain men, vaginal bleeding, musculoskeletal, weakness, fever, dyspnea, syncope, headache, dizziness, GI bleed, back pain, seizure, CVA, palpatations, mental health)? @ -Differential Mental Health: Depression, anxiety, bipolar, psychosis, schizophrenia, borderline personality, situational depression, adjustment disorder, behavioral disorder, brain tumor, malingering, substance abuse, encephalopathy, medication reaction, dementia, hypothyroidism, degenerative neurologic disorder, lupus.... This is not meant to be all-inclusive list EKG interpreted by me (3pts min.). @ -None done X-rays interpreted by me (1pt min.). @ -None done CT interpreted by me (1pt min.). @ -None done U/S interpreted by me (1pt. min.). @ -None done What testing was considered but not performed or refused? (CT, X-rays, U/S, labs)? Why? @ -None What meds were considered but not given or refused? Why? @ -None Was smoking cessation discussed for >3mins.? @ -No Were there social determinants of health that impacted care today? How? (Homelessness, low income, unemployed, alcoholism, drug addiction, transportation, low edu. Level, literacy, decrease access to med. care, nursing home, rehab)? @ -No Was there de-escalation of care discussed even if they declined (Discuss DNR or withdrawal of care, Hospice)? DNR status @ -No What co-morbidities impacted this encounter? (DM, HTN, Smoking, COPD, CAD, Cancer, CVA, ARF, Chemo, Hep., AIDS, mental health diagnosis, sleep apnea, morbid obesity)? @ -None Was patient admitted / discharged? Hospital course, mention meds given and route, prescriptions, significant lab abnormalities, going to OR and other pertinent info. @ -69-year-old female sent in from [facility] for inpatient psych admission. Vital signs stable. Physical examination unremarkable. Patient medically cleared for EPS Patient care signed out to Dr. Mcneal at 9:00 PM Did you discuss the management of the patient with other professionals (professionals i.e. , PA, [employer]IC, lab, RT, psych nurse, social science analyst, melting operator, teacher, air defence officer, major case detective)? Give summary @ -No Was critical care preformed (if so, how long)? @ -No Undiagnosed new problem with uncertain prognosis? @ -No Drug Therapy requiring intensive monitoring for toxicity (Heparin, Nitro, Insulin, Cardizem)? @ -No Were any procedures done? @ -No Diagnosis/symptom? Acute, or Chronic, or Acute on Chronic? Uncomplicated (without systemic symptoms) or Complicated (systemic symptoms)? @ -Suicidal ideation Side effects of treatment? @ -No Exacerbation, Progression, or Severe Exacerbation? @ -No Poses a threat to life or bodily function? How? (Chest pain, [place], [place], pneumonia, PE, COPD, DKA, ARF, appy, cholecystitis, CVA, Diverticulitis, Homicidal, Suicidal, threat to staff... and all critical care pts) @ -yes (Carlos Cason) Disposition <Carlos Cason - Last Filed: 03/19/25 20:28> Is patient prescribed a controlled substance at d/c from ED?: No <Harsh Castañeda - Last Filed: 03/19/25 22:39> Clinical Impression: Acute anxiety, Depression, Adjustment reaction of adult life, Suicidal ideation Disposition: TRANSFER TO PSYCH HOSP/UNIT Condition: Fair Referrals: Eve Resendiz MD [Primary Care Provider] - 1-2 days
[2025-03-20] MEDS: LORazepam 0.5 MG TAB PO STA (00:01)
[2025-03-20 00:34] LABS: Basophils # (A) 0.01 10*3/uL (0.00-0.10); Basophils % (A) 0.1 %; Eosinophils # (A) 0.22 10*3/uL (0.04-0.35); Eosinophils % (A) 3.2 %; HCT 39.5 % (37.2-46.3); HGB 13.1 g/dL (12.0-15.0); Lymphocytes # (A) 2.68 10*3/uL (0.90-5.00); Lymphocytes % (A) 38.4 %; MCH 27.8 pg (27.0-32.0); MCHC 33.2 g/dL (32.0-37.0); MCV 83.9 fL (80.0-97.0); Mean Platelet Volume 10.5 fL (9.5-12.2); Monocytes # (A) 0.61 10*3/uL (0.20-1.00); Monocytes % (A) 8.7 %; Neutrophils # (A) 3.44 10*3/uL (1.80-7.70); Neutrophils % (A) 49.3 %; Platelet Count 249 10*3/uL (140-440); RBC 4.71 10*6/uL (4.10-5.20); RDW 13.4 % (11.5-14.5); WBC 6.98 10*3/uL (4.50-10.00)
[2025-03-20 01:16] LABS: ALT 27 U/L (4-34); AST 28 U/L (14-36); African American GFR (CKD) >90 (>60 ml/min/1.73 sqM); Alkaline Phosphatase 119 U/L (38-126); Anion Gap 9 mmol/L; Blood Urea Nitrogen 14 mg/dL (7-17); Calcium 10.7 mg/dL (8.4-10.2); Carbon Dioxide 27 mmol/L (22-30); Chloride 103 mmol/L (98-107); Glucose 87 mg/dL (74-99); Non-African American GFR(CKD) >90 (>60 ml/min/1.73 sqM); Potassium 4.3 mmol/L (3.5-5.1); Sodium 139 mmol/L (137-145); Total Bilirubin 0.6 mg/dL (0.2-1.3); Total Protein 6.3 g/dL (6.3-8.2)
[2025-03-20 03:53] LABS: Influenza A Not Detected (Not Detectd); Influenza B Not Detected (Not Detectd); RSV Not Detected (Not Detectd)
[2025-03-20 05:24] LABS: Appearance,Urine Clear (Clear); Bacteria,Urine Rare /hpf; Bilirubin,Urine Negative (Negative); Blood,Urine Negative (Negative); Color,Urine Light Yellow; Glucose,Urine (UA) Negative (Negative); Hyaline Casts,Urine 4 /lpf (0-2); Ketones,Urine 2+ (Negative); Leukocyte Esterase,Urine Small (Negative); Mucus,Urine Occasional /hpf; Nitrite,Urine Negative (Negative); Protein,Urine Negative (Negative); RBC,Urine 2 /hpf (0-5); Specific Gravity,Urine 1.018 (1.001-1.035); Squamous Epithelial Cell,Urine 3 /hpf (0-4); Urobilinogen,Urine <2.0 mg/dL (<2.0); WBC,Urine 9 /hpf (0-5)
[2025-03-20 05:29] LABS: Amphetamine Screen,Urine Not Detected (NotDetected); Barbiturate Screen,Urine Not Detected (NotDetected); Benzodiazepines Screen,Urine Detected (NotDetected); Cocaine Screen,Urine Not Detected (NotDetected); Methadone Screen, Urine Not Detected (NotDetected); Opiate Screen,Urine Not Detected (NotDetected); Oxycodone Screen, Urine Not Detected (NotDetected); Phencyclidine Screen,Urine Not Detected (NotDetected); Tricyclic Antidepressant,Urine Not Detected (NotDetected); Urn Cannabinoid Scrn Detected (NotDetected)
[2025-03-20] MEDS ORDERED: HYDROcodone/APAP 7.5-325MG 1 EACH TAB PO PRN (11:16)
[2025-03-20] MEDS: DULoxetine HCL 30 MG CAPSULE.DR PO SCH (11:36)
[2025-03-20] MEDS: LORazepam 1 MG TAB PO STA ×2 (11:42→20:30)
[2025-03-20] MEDS: lisinopriL 20 MG TAB PO SCH (11:43)
[2025-03-20] MEDS: PANTOPRAZOLE 40 MG TABLET PO SCH (11:43)
[2025-03-20] MEDS: DOCUSATE 100 MG CAP PO SCH (11:44)
[2025-03-20 19:23] VITALS: RESP 17; TEMP 98
[2025-03-20] MEDS: ATORVASTATIN 10 MG TAB PO SCH (22:03)
[2025-03-20 22:07] VITALS: BP 161/54; PULSE 120
== END 2025-03-20 22:28 ==
LOC: EC 17:13
DX: F43.23 Adjustment disorder with mixed anxiety and depressed mood (principal); R45.851 Suicidal ideations
CPT/HCPCS: 36415; 80053; 80306; 81001; 82075; 85025; 87636; 99285